=== PATIENT | male | born 1970 | race Caucasian/White ===

== ENCOUNTER 2018-06-20 11:04 | Emergency (ER) | payer MEDICAID, MEDICARE ==
[~2018-06-20] VITALS: Ht 193 cm; Wt 181.4 kg
[2018-06-20 11:55] VITALS: BP 144/99
[2018-06-20] MEDS ORDERED: LIDOCAINE 1% Multi-Dose 20 ML VIAL. INJ ONE (12:00)
--- NOTE | 2018-06-20 12:46 | RAD ---
3 view left hand 06/20/2018 CLINICAL INDICATION: Left hand laceration, crush injury. COMPARISON: None. FINDINGS: There is numerous clustered punctate high density predominantly in the soft tissues at the radial aspect of the 2nd distal phalanx. There is minimal cortical offset at the 2nd distal phalanx tuft with additional adjacent high density. There is diffuse soft tissue swelling about the 2nd digit. Otherwise osseous structures are intact. IMPRESSION: 1. Surgical cortical offset tuft 2nd distal phalanx, most consistent with a nondisplaced fracture. 2. Extensive punctate high density about the distal 2nd digit, most consistent with radiopaque foreign bodies, some of which may be intraosseous. Electronically signed by: Tian Perea MD (06/20/2018 12:42 PM) [id number]
--- NOTE | 2018-06-20 12:46 | PHYS DOC ---
Past Medical History Past Medical History: Other Additional Past Medical Histor: chronic back and neck pain Past Surgical History: Other Additional Past Surgical Histo: lumbar (L2-L5) x 2 Alcohol Use: None Drug Use: None Adult General Chief Complaint Chief Complaint: LACERATION/AVULSION HPI HPI Patient is a 47 year old male who presents with right hand laceration. The patient had a large piece of sheet metal fall onto the dorsal aspect of his hand. He sustained laceration over the first metacarpal area. He complains of inability to move the finger and laceration. No additional injuries. Review of Systems Review of Systems Constitutional: Denies fever Eyes: Denies change in visual acuity HENT: Denies Respiratory: Denies cough or shortness Cardiovascular: No additional information GI: Denies abdominal pain : Denies dysuria Musculoskeletal: Denies back pain Integument: Denies rash or skin lesions Neurologic: Denies headache Endocrine: Denies polyuria All other systems were reviewed and found to be within normal limits, except as documented in this note. Current Medications Current Medications Current Medications Medications (Trade) Dose Ordered Sig/Zaid Start Time Stop Time Status Last Admin Dose Admin Diphtheria/ Tetanus/Acell Pertussis (Boostrix) 0.5 ml ONCE ONCE 06/20/18 13:45 06/20/18 13:46 DC 06/20/18 13:48 0.5 ML Lidocaine HCl (Lidocaine 1% 20ml Vial) 20 ml 1X ONCE 06/20/18 12:00 06/20/18 12:01 DC 06/20/18 12:00 20 ML Allergies Allergies Allergies Coded Allergies Type Severity Reaction Last Updated Verified No Known Drug Allergies 03/29/14 No Physical Exam Physical Exam Constitutional: Well developed, well nourished, no acute distress, non-toxic appearance HENT: Normocephalic, atraumatic, bilateral external ears normal, oropharynx moist Eyes: PERRLA, EOMI, conjunctiva normal Neck: Normal range of motion Lungs & Thorax: Bilateral breath sounds clear Skin: Warm, dry, no erythema, no rash Extremities: Duration over the dorsum of the right hand near the base of the index finger. The wound edges are gaping but is hemostatic. The patient has loss of extensor function to resistance of the right index finger. All flexors are intact. Distal capillary refill is less than 2 seconds. Sensation light touch is intact. Neurologic: Alert and oriented X 3 Psychologic: Affect normal Current Patient Data Vital Signs Vital Signs Date Time Temp Pulse Resp B/P (MAP) Pulse Ox O2 Delivery O2 Flow Rate FiO2 06/20/18 11:55 98.5 96 20 144/99 (114) 95 Room Air 98.5 EKG EKG [] Radiology/Procedures Radiology/Procedures FINDINGS: There is numerous clustered punctate high density predominantly in the soft tissues at the radial aspect of the 2nd distal phalanx. There is minimal cortical offset at the 2nd distal phalanx tuft with additional adjacent high density. There is diffuse soft tissue swelling about the 2nd digit. Otherwise osseous structures are intact. IMPRESSION: 1. Surgical cortical offset tuft 2nd distal phalanx, most consistent with a nondisplaced fracture. 2. Extensive punctate high density about the distal 2nd digit, most consistent with radiopaque foreign bodies, some of which may be intraosseous. Course & Med Decision Making Course & Med Decision Making Pertinent Labs and Imaging studies reviewed. (See chart for details) Procedure note: Wound was cleansed with saline and iodine. Local anesthesia was provided with 4 mL of 1% lidocaine. 6 simple interrupted sutures were placed using 4-0 nylon. Prior to suturing, proximal end of the extensor tendon was visible. The tendon was completely severed. Patient tolerated procedure well. Patient is evaluated for a laceration over the right hand. Tetanus shot was given. His x-ray did show a small fracture. He was placed on Keflex. Dr. Lam did consult the patient during the ED course and decision was made to take the patient to the operating room but the patient could not go later today. He was discharged from the ER with pain medications on antibiotics. He was placed in an splint in extension. He will follow up with Carole for surgery possibly tomorrow. All the patient's questions were answered prior to discharge home. Dragon Disclaimer Dragon Disclaimer This electronic medical record was generated, in whole or in part, using a voice recognition dictation system. Departure Departure Referrals: NO PCP (PCP) Scripts Cephalexin (KEFLEX) 500 Mg Capsule 500 MG PO QID for 10 Days, #40 CAP Prov: MANUEL MONSON DO 06/20/18 Hydrocodone/Apap 5-325 (NORCO 5-325 TABLET) 1 Each Tablet 1-2 EACH PO PRN Q6HRS PRN for SEVERE PAIN, #20 as needed for pain Prov: MANUEL MONSON DO 06/20/18 MANUEL MONSON DO Jun 20, 2018 12:46
[2018-06-20] MEDS ORDERED: CEPH-264 PO (13:26)
[2018-06-20] MEDS ORDERED: HYDR-971 PO (13:26)
[2018-06-20] MEDS ORDERED: DIPHTH,PERTUSS(ACELL),TET TOX 0.5 ML DISP.SYRIN. VAX IM ONE (13:45)
[2018-06-20] MEDS ORDERED: ATEN50TA PO (17:50)
[2018-06-20] MEDS ORDERED: OXYC10TA45 PO (17:52)
[2018-06-20] MEDS ORDERED: TIZA4CAP3 PO (17:52)
[2018-06-20] MEDS ORDERED: OXYC-328 PO (17:53)
[2018-06-21] MEDS ORDERED: HYDR-965 PO (21:47)
--- NOTE | 2018-06-22 04:03 | CONS ---
DATE OF CONSULTATION: Emergency Department Consultation REQUESTING PHYSICIAN: Dickson Cat DO REASON FOR CONSULTATION: Right index finger extensor tendon laceration. HISTORY OF PRESENT ILLNESS: The patient is a 47-year-old male who presents with a right hand laceration after helping a friend with some project at home and had a large piece of sheet metal fall on to the back of his hand. He cannot extend the finger. Laceration was actually explored in the emergency department earlier and washed out and the skin is closed. He is now splinted in extension. PAST MEDICAL HISTORY: Significant for chronic neck and back pain, multiple lumbar surgeries. ALLERGIES: He has no known drug allergies. MEDICATIONS: List is reviewed. FAMILY HISTORY: Noncontributory. REVIEW OF SYSTEMS: Significant only for the index finger laceration of the extensor tendon. Denies any chest pain, shortness of breath. He does indicate that he has not had some chronic pain medications today and his back is hurting from sitting in the emergency department. PHYSICAL EXAMINATION: GENERAL: Pleasant, cooperative 47-year-old male. HEENT: Atraumatic, normocephalic. HEART: Regular rate and rhythm. LUNGS: Clear to auscultation bilaterally. ABDOMEN: Benign. EXTREMITIES: On examination of the right hand, he has a U-shaped laceration over the dorsum of the right hand. He is unable to actively extend the index finger. Flexor superficialis and profundus are intact. He can flex and extend the remaining fingers. He has normal examination of the contralateral hand. IMAGING: X-rays show no evidence of fracture. IMPRESSION: Right index extensor tendon laceration. TREATMENT PLAN: I talked to him about treatment options and the usual operative treatment given his lack of extension and recommended operative repair. He was offered to have this tendon repaired on 06/20/2018, date of evaluation in the emergency department. Since he was n.p.o., I could perform the procedure after clinic. He declined, as he wanted to go home instead, again had not eaten, his back was hurting, he had not had his medications and he would prefer to schedule surgery in the next day or so. All his questions were answered regarding this. He is going to come back for planned elective surgery tomorrow. ILIANA BELTRE MD DR: MARISA/royer JOB#: [id number] / [id number]
== END 2018-06-20 13:49 | disposition home or self-care (01) ==
LOC: ER 11:04
DX: S61.411A Laceration without foreign body of right hand, initial encounter (principal); W20.8XXA Other cause of strike by thrown, projected or falling object, initial encounter; Y93.89 Activity, other specified; Y92.89 Other specified places as the place of occurrence of the external cause; Y99.8 Other external cause status
CPT/HCPCS: 12002; 73130; 90471; 90715; 99284

== ENCOUNTER → 2018-06-21 | Day surgery (SDC) | payer MEDICARE ==
[~2018-06-21] MED LIST: ATEN50TA PO; CEPH-264 PO; DEXAMETHASONE SOD PHOS 20 MG/5 ML VIAL. ONE; HYDR-965 PO; HYDR-971 PO; HYDROmorphone 2 MG/ML VIAL IV PRN; IV RINGERS,LACTATED 1000ML 1,000 ML IV SCH; LIDOCAINE 1% PF 2 ML VIAL. ID PRN; LIDOCAINE 1% PF 30 ML VIAL. ONE; MORPHINE SULFATE 2 MG/ML VIAL. IV PRN; ONDANSETRON PF 4 MG/2 ML VIAL. IV PRN; OXYC-328 PO; OXYC10TA45 PO; PROCHLORPERAZINE 10 MG/2 ML VIAL. IV PRN; PROPOFOL 20 ML IV ONE; SEVOFLURANE 61 TO 120 MINUTES. IH ONE; TIZA4CAP3 PO; fentaNYL PF VIAL 100 MCG/2 ML VIAL IV ONE; fentaNYL PF VIAL 100 MCG/2 ML VIAL IV PRN; fentaNYL PF VIAL 100 MCG/2 ML VIAL ONE
--- NOTE | 2018-06-21 21:35 | PDOC4 ---
Operative Note Operative Note Date of surgery: 06/21/2018 Preoperative diagnosis: Right index finger extensor tendon laceration Postoperative diagnosis: Same Operative procedure: Right index finger extensor tendon repair Surgeon: Carole Anesthesia: Gen. Estimated blood loss: 25 mL Complications: None Operative indications: Shaquille is a 47-year-old male seen in the emergency room yesterday after having a piece of sheet metal come down on the back of his hand and lacerated he cannot extend his index finger. The area at that time was washed out and splinted. I had offered him surgery that day since he was nothing by mouth. He stated that he was hungry and his back was hurting he 1 to get home and take medications and have surgery the next day. I had talked to him at the time about risks benefits postoperative course of surgery including the possibility of infection stiffness nerve or blood vessel damage medical or other anesthetic complications among others and the fact that the tendon would have to be protected following the repair. All his questions were answered he wishes to proceed with surgical evaluation and treatment. Operative text: Patient was identified procedure verified patient placed in the supine position on the operating table. After adequate amounts of general anesthesia were administered the right upper extremity was prepped and draped in standard sterile fashion and after timeout was performed patient procedure identified and verified the dorsal hand wound over the index extensor tendon was explored and found to have a full-thickness laceration with separation of the tendon edges. Any devitalized tissue was sharply debrided thorough irrigation carried out normal saline solution and tendon repair was carried out with 2-0 Ethibond suture in a grasping fashion and once the tendon was approximated additional running and interrupted suture around the periphery was carried out to further supplement the integrity of the repair. Thorough irrigation again carried out normal saline solution skin closure with nylon suture sterile dressings were applied the index finger was splinted in extension with an AlumaFoam splint and patient was returned to recovery room in stable condition having tolerated procedure well ILIANA BELTRE MD Jun 21, 2018 21:35
[2018-06-21 21:44] VITALS: BP 129/80
--- NOTE | 2018-06-21 21:46 | DISCH ---
DISCHARGE INSTRUCTIONS Condition on Discharge Condition on Discharge: Stable Activity After Discharge Activity Instructions for Disc: Other, see below (keep splint on index finger in extension) Lifting Instructions after Dis: No heavy lifting, No pulling or pushing (fine motor use of remaining fingers only no heart grasping) Diet after Discharge Diet after Discharge: Regular Wound Incision Care Wound/Incision Care: Do not change dressing Contacting the [facility] after DC Call your doctor for: Concerns you may have Follow-Up Follow up with: Carole 1 week ILIANA BELTRE MD Jun 21, 2018 21:46
== END | disposition home or self-care (01) ==
LOC: SURG 13:35
PROVIDERS: ATTEND Orthopaedic Surgery
DX: S66.320A Laceration of extensor muscle, fascia and tendon of right index finger at wrist and hand level, initial encounter (principal); X58.XXXA Exposure to other specified factors, initial encounter; Y93.89 Activity, other specified; Y92.89 Other specified places as the place of occurrence of the external cause; Y99.8 Other external cause status; Z79.899 Other long term (current) drug therapy; Z98.890 Other specified postprocedural states
CPT/HCPCS: 26418; J1100; J2405; J2704; J3010

== ENCOUNTER 2019-07-04 12:03 | Emergency (ER) | payer MEDICARE, MEDICAID ==
[~2019-07-04] VITALS: Ht 193 cm; Wt 194.6 kg
[~2019-07-04 12:03] MED LIST changes: -DEXAMETHASONE SOD PHOS 20 MG/5 ML VIAL. ONE; +HYDR-3164 PO; +HYDR-3165 PO; -HYDR-965 PO; -HYDR-971 PO; -HYDROmorphone 2 MG/ML VIAL IV PRN; -IV RINGERS,LACTATED 1000ML 1,000 ML IV SCH; -LIDOCAINE 1% PF 2 ML VIAL. ID PRN; -LIDOCAINE 1% PF 30 ML VIAL. ONE; -MORPHINE SULFATE 2 MG/ML VIAL. IV PRN; -ONDANSETRON PF 4 MG/2 ML VIAL. IV PRN; -OXYC-328 PO; -OXYC10TA45 PO; +OXYC10TA46 PO; +OXYC1TAB22 PO; -PROCHLORPERAZINE 10 MG/2 ML VIAL. IV PRN; -PROPOFOL 20 ML IV ONE; -SEVOFLURANE 61 TO 120 MINUTES. IH ONE; -fentaNYL PF VIAL 100 MCG/2 ML VIAL IV ONE; -fentaNYL PF VIAL 100 MCG/2 ML VIAL IV PRN; -fentaNYL PF VIAL 100 MCG/2 ML VIAL ONE
[2019-07-04 12:05] VITALS: BP 138/88
[2019-07-04] MEDS ORDERED: OXYC1TAB22 PO (12:42)
[2019-07-04] MEDS ORDERED: LIDO1ADH63 TP (12:42)
[2019-07-04] MEDS ORDERED: PRED20TA PO (12:42)
--- NOTE | 2019-07-04 12:42 | PHYS DOC ---
Past Medical History Past Medical History: Other Additional Past Medical Histor: chronic back and neck pain Past Surgical History: Other Additional Past Surgical Histo: lumbar (L2-L5) x 2 Additional Information: Nonsmoker Alcohol Use: None Drug Use: None Adult General Chief Complaint Chief Complaint: BACK PAIN - NO INJURY HPI HPI 48 year old male presents with report of worsening low back pain with radiation down left leg after helping someone lift a mattress yesterday. Reports history of chronic back pain requiring surgery. Reports is chronically prescribed oxycotin 10mg and oxycodone/APAP 10/325mg. Reports he is out of both. Denies fever/chills. Denies loss of bowel/bladder. Denies rash. Review of Systems Review of Systems Constitutional: Denies fever or chills Eyes: Denies change in visual acuity, redness, or eye pain HENT: Denies nasal congestion or sore throat Respiratory: Denies cough or shortness of breath Cardiovascular: Denies chest pain or palpitations GI: Denies abdominal pain, nausea, vomiting, or diarrhea : Denies dysuria or hematuria Musculoskeletal: Reports back pain and radiation down left leg Integument: Denies rash or skin lesions Neurologic: Denies headache, focal weakness or sensory changes Complete systems were reviewed and found to be within normal limits, except as documented in this note. Current Medications Current Medications Current Medications Medications (Trade) Dose Ordered Sig/Zaid Start Time Stop Time Status Last Admin Dose Admin Dexamethasone (Decadron) 10 mg 1X ONCE 07/04/19 12:45 07/04/19 12:46 DC 07/04/19 12:50 10 MG Hydromorphone HCl (Dilaudid) 1 mg 1X ONCE 07/04/19 13:30 07/04/19 13:34 DC 07/04/19 13:33 1 MG Ketorolac Tromethamine (Toradol 30mg Vial) 30 mg 1X ONCE 07/04/19 12:45 07/04/19 12:46 DC 07/04/19 12:51 30 MG Lidocaine (Lidoderm) 1 patch 1X ONCE 07/04/19 12:45 07/04/19 12:46 DC 07/04/19 12:49 1 PATCH Morphine Sulfate (Morphine Sulfate) 8 mg 1X ONCE 07/04/19 12:45 07/04/19 12:46 DC 07/04/19 12:52 8 MG Orphenadrine Citrate (Norflex) 60 mg 1X ONCE 07/04/19 12:45 07/04/19 12:46 DC 07/04/19 12:52 60 MG Allergies Allergies Allergies Coded Allergies Type Severity Reaction Last Updated Verified No Known Drug Allergies 06/22/18 No Physical Exam Physical Exam Constitutional: Well developed, well nourished, pain, appears uncomfortable, no n-toxic appearance, morbidly obese HENT: Normocephalic, atraumatic, oropharynx moist, nose normal Eyes: Conjunctiva normal, no discharge Neck: Normal range of motion, no tenderness, supple, no meningeal signs Cardiovascular: Heart rate normal and regular rhythm Lungs & Thorax: Bilateral breath sounds clear to auscultation, no respiratory distress Abdomen: Soft, no tenderness, obese Skin: Warm, dry, no erythema, no rash Back: No midline tenderness, left low lumbar paraspinal tenderness on palpation, no CVA tenderness Extremities: No tenderness, no deformity, left PT + 2, straight leg raise difficulty due to pain Neurologic: Alert and oriented X 3, no focal deficits noted Current Patient Data Vital Signs Vital Signs Date Time Temp Pulse Resp B/P (MAP) Pulse Ox O2 Delivery O2 Flow Rate FiO2 07/04/19 13:33 24 93 Room Air 07/04/19 12:05 97.5 90 138/88 (105) 97.5 EKG EKG [] Radiology/Procedures Radiology/Procedures [] Course & Med Decision Making Course & Med Decision Making Patient presents with HPI and physical exam consistent for acute on chronic back pain with sciatica down left leg. Denies loss of bowel/bladder. No history of significant trauma. NO midline spinal tenderness. Imaging not warranted at this time. Pain addressed. Patient reports is currently out of chronically prescribed pain medications. Advised would be limited on prescriptions of controlled substances, but would offer one time courtesy refill of percocet 5/325mg along with treatment with non-narcotics. Patient stable for discharge home with outpatient follow-up with PCP/Pain management. Pain management referral provided. Discussed findings and plan with patient, who acknowledges understanding and agreement. Dragon Disclaimer Dragon Disclaimer This electronic medical record was generated, in whole or in part, using a voice recognition dictation system. Departure Departure Impression: Primary Impression: Acute exacerbation of chronic low back pain Additional Impression: Sciatica Disposition: 01 HOME, SELF-CARE Condition: STABLE Referrals: NO PCP (PCP) MANUEL HOLLY MD Patient Instructions: Chronic Back Pain, Sciatica, Yame-[id number] Scripts Prednisone (PREDNISONE) 20 Mg Tablet 2 TAB PO DAILY, #8 TAB Start this prescription tomorrow, Wednesday07/05/19 Prov: ALEX HOWARD DO 07/04/19 Lidocaine (Lidocaine) 1 Each Adh..patch 1 EACH TP Q12HR, #[address] patch on area of pain and keep on for 12 hours then removed for next 12 hours before replacement of new patch Prov: ALEX HOWARD DO 07/04/19 Oxycodone/Apap 10-325 (PERCOCET 10-325 MG TABLET ) 1 Each Tablet 1 TAB PO PRN Q6HRS PRN for PAIN, #8 TAB 0 Refills Prov: ALEX HOWARD DO 07/04/19 Problem Qualifiers Additional Impression: Sciatica Laterality: left Qualified Codes: M54.32 - Sciatica, left side ALEX HOWARD DO Jul 04, 2019 12:42
[2019-07-04] MEDS ORDERED: ORPHENADRINE CITRATE 60 MG/2 ML VIAL. IM ONE (12:45)
[2019-07-04] MEDS ORDERED: KETOROLAC 30 MG/ML VIAL. IM ONE (12:45)
[2019-07-04] MEDS ORDERED: LIDOCAINE (700MG/PATCH) PATCH. TD ONE (12:45)
[2019-07-04] MEDS ORDERED: MORPHINE SULFATE 10 MG/ML VIAL. IM ONE (12:45)
[2019-07-04] MEDS ORDERED: DEXAMETHASONE 4 MG TABLET PO ONE (12:45)
[2019-07-04] MEDS ORDERED: HYDROmorphone 2 MG/ML VIAL IM ONE (13:30)
== END 2019-07-04 13:45 | disposition home or self-care (01) ==
LOC: ER 12:03
DX: G89.29 Other chronic pain (principal); M54.42 Lumbago with sciatica, left side
CPT/HCPCS: 96372; 99284; J1170; J1885; J2270; J2360; J8540